=== PATIENT | female | born 1940 | race Caucasian/White ===

== ENCOUNTER 2017-09-29 13:42 | Outpatient (CLI) | payer OTHER | END 2017-09-29 13:49 | disposition home or self-care (01) | LOC: RAD 13:42 | DX: M17.0 Bilateral primary osteoarthritis of knee (principal) ==

== ENCOUNTER 2017-11-24 09:03 | Outpatient (CLI) | payer OTHER | END 2017-11-24 09:07 | disposition home or self-care (01) | LOC: SONOGRAMA 09:03 | DX: R10.10 Upper abdominal pain, unspecified (principal) ==

== ENCOUNTER 2017-12-05 13:50 | Outpatient (CLI) | payer OTHER | END 2017-12-05 13:58 | disposition home or self-care (01) | LOC: NUCLEAR 13:50 → EDBD 14:00 → NUCLEAR 14:00 | DX: M85.88 Other specified disorders of bone density and structure, other site (principal); M81.0 Age-related osteoporosis without current pathological fracture ==

== ENCOUNTER 2018-11-14 12:20 | Outpatient (CLI) | payer OTHER | END 2018-11-14 12:38 | disposition home or self-care (01) | LOC: RAD 12:20 | DX: M54.5 Low back pain (principal) ==

== ENCOUNTER 2019-01-16 07:52 | Outpatient (CLI) | payer OTHER | END 2019-01-16 07:55 | disposition home or self-care (01) | LOC: TOM 07:52 | DX: R10.84 Generalized abdominal pain (principal) | CPT/HCPCS: 74177; 76700; Q9965 ==

== ENCOUNTER 2019-11-20 07:16 | Outpatient (CLI) | payer OTHER | END 2019-11-20 07:21 | disposition home or self-care (01) | LOC: NUCLEAR 07:16 | PROVIDERS: ATTEND Specialist | DX: I25.10 Atherosclerotic heart disease of native coronary artery without angina pectoris (principal); R94.31 Abnormal electrocardiogram [ECG] [EKG] | CPT/HCPCS: 78452; 93017; A9500; J0153 ==

== ENCOUNTER 2020-03-13 14:25 | Outpatient (CLI) | payer OTHER | END 2020-03-13 14:26 | disposition home or self-care (01) | LOC: RAD 14:25 | PROVIDERS: ATTEND Internal Medicine Rheumatology | DX: M16.0 Bilateral primary osteoarthritis of hip (principal); M46.1 Sacroiliitis, not elsewhere classified ==

== ENCOUNTER 2021-01-29 11:19 | Outpatient (CLI) | payer OTHER | END 2021-01-29 11:24 | disposition home or self-care (01) | LOC: TOM 11:19 | PROVIDERS: ATTEND Specialist | DX: N85.8 Other specified noninflammatory disorders of uterus (principal); R09.02 Hypoxemia; J84.89 Other specified interstitial pulmonary diseases; N95.0 Postmenopausal bleeding ==

== ENCOUNTER 2021-03-30 10:19 | Outpatient (CLI) | payer OTHER ==
[~2021-03-30 10:19] MED LIST: VOLTAREN ARTHRI20 GM TOP
== END 2021-03-30 10:27 | disposition home or self-care (01) ==
LOC: SONOGRAMA 10:19
PROVIDERS: ATTEND Otolaryngology
DX: R22.1 Localized swelling, mass and lump, neck (principal); E04.2 Nontoxic multinodular goiter

== ENCOUNTER 2021-04-17 12:13 | Outpatient (CLI) | payer OTHER | END 2021-04-17 12:28 | disposition home or self-care (01) | LOC: RAD 12:13 | PROVIDERS: ATTEND Family Medicine | DX: M17.12 Unilateral primary osteoarthritis, left knee (principal); S83.32XA Tear of articular cartilage of left knee, current, initial encounter ==

== ENCOUNTER 2021-09-28 10:34 | Outpatient (CLI) | payer OTHER | END 2021-09-28 10:39 | disposition home or self-care (01) | LOC: RAD 10:34 | PROVIDERS: ATTEND Family Medicine | DX: M25.569 Pain in unspecified knee (principal); M54.2 Cervicalgia ==

== ENCOUNTER → 2022-07-28 | Outpatient (CLI) | payer OTHER | END | disposition home or self-care (01) | LOC: SONOGRAMA 12:06 | PROVIDERS: ATTEND Family Medicine | DX: M15.8 Other polyosteoarthritis (principal); M25.562 Pain in left knee; M25.561 Pain in right knee; M71.21 Synovial cyst of popliteal space [Baker], right knee; Z96.651 Presence of right artificial knee joint ==

== ENCOUNTER 2023-05-05 13:17 | Outpatient (CLI) | payer OTHER | END 2023-05-05 13:26 | disposition home or self-care (01) | LOC: SONOGRAMA 13:17 | PROVIDERS: ATTEND Family Medicine | DX: N95.0 Postmenopausal bleeding (principal); N36.2 Urethral caruncle ==

== ENCOUNTER 2024-11-13 12:42 | Emergency (ER) | payer OTHER ==
[~2024-11-13] VITALS: Ht 165.1 cm; Wt 64.4 kg
[~2024-11-13 12:42] MED LIST changes: +SYNTHROID75 MCG PO
[2024-11-13] MEDS ORDERED: ARICEPT5 MG PO (14:02)
== END 2024-11-13 15:49 | disposition home or self-care (01) ==
LOC: ER 12:42
DX: S01.01XA Laceration without foreign body of scalp, initial encounter (principal); X58.XXXA Exposure to other specified factors, initial encounter; Y93.89 Activity, other specified; Y92.89 Other specified places as the place of occurrence of the external cause; Y99.8 Other external cause status; Z88.1 Allergy status to other antibiotic agents; Z88.2 Allergy status to sulfonamides; Z88.6 Allergy status to analgesic agent